=== PATIENT | male | born 1955 | race Caucasian/White ===

== ENCOUNTER 2024-04-23 14:29 | Outpatient (CLI) | payer MEDICARE | END 2024-04-23 14:30 | disposition home or self-care (01) | LOC: CSHMRI 14:29 | PROVIDERS: ATTEND Physical Therapist | DX: M54.50 Low back pain, unspecified (principal); D18.09 Hemangioma of other sites; N28.1 Cyst of kidney, acquired | CPT/HCPCS: 72148 ==